=== PATIENT | female | born 1955 ===

== ENCOUNTER 2020-01-01 18:33 | Outpatient (REF) | payer BC, SELFPAY ==
[2020-01-05 03:11] LABS: SARS-CoV-2 RNA Undetected (Undetected); SARS-CoV-2 Specimen Source Nasal
== END 2020-01-01 18:53 ==
LOC: NCHCN 18:33
PROVIDERS: Visit Provider Nurse Practitioner Family
DX: J06.9 Acute upper respiratory infection, unspecified (principal)
CPT/HCPCS: U0003